=== PATIENT | male | born 1960 | race Caucasian/White ===

== ENCOUNTER 2021-11-19 11:22 | Emergency (ER) | payer OTHER, SELFPAY ==
[2021-11-19 11:24] VITALS: BP 180/111; PULSE 66; RESP 18; TEMP 36.8; O2SAT 97
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
[2021-11-19] MEDS: fentaNYL 100 MCG/2 ML VIAL 75 MCG IVP (11:51)
[2021-11-19] MEDS: Ondansetron 4 MG/2 ML VIAL (11:51)
[2021-11-19 11:55] LABS: Abs Immature Grans 0.07 10^3/uL (0.0-0.06); Absolute Basophil Count 0.04 10^3/uL (0.0-0.2); Absolute Lymphocyte Count 1.06 10^3/uL (1.2-3.4); Absolute Neutrophil Count 12.91 10^3/uL (1.2-6.7); Basophils % 0.3; Eosinophils % 0.7; HCT 44.5 % (40.0-50.0); HGB 14.9 g/dL (13.5-17.5); Immature Grans % 0.5; Lymphocytes % 7.1; MCH 30.9 pg (27.0-33.0); MCHC 33.5 % (32.0-36.0); MCV 92 fL (80-95); MPV 10.3 fL (8.0-11.0); Monocytes % 4.7; Neutrophils % 86.7; Platelet Count 258 10^3/uL (130-400); RBC 4.82 10^6/uL (4.36-5.78); RDW 13.3 % (11.8-14.1); RDW-SD 45.2 fL; WBC 14.89 10^3/uL (4.4-10.8)
[2021-11-19 12:07] LABS: ALT 25 U/L (16-63); AST 24 U/L (15-37); Alkaline Phosphatase 81 U/L (46-116); Anion Gap 7.6 mmol/L (3-11); BUN 20 mg/dL (7-18); Bilirubin, Total 0.5 mg/dL (0.2-1.0); CO2 28.4 mmol/L (21.0-32.0); CREATININE 1.9 mg/dL (0.70-1.30); Calcium 8.9 mg/dL (8.5-10.1); Chloride 103 mmol/L (98-107); Estimated GFR 36.34 (mL/min/1.73m2); Glucose 116 mg/dL (74-106); Lipase 371 U/L (73-393); Potassium 3.2 mmol/L (3.5-5.1); Sodium 139 mmol/L (136-145); Total Protein 7.9 g/dL (6.4-8.2)
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
[2021-11-19] MEDS: Omnipaque 350 MG/ML 100 ML BTL IJ (13:07)
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
== END 2021-11-19 16:24 | disposition home or self-care (01) ==
PROVIDERS: Emergency Provider Physician Assistant
DX: S42.002A Fracture of unspecified part of left clavicle, initial encounter for closed fracture (principal); S92.325A Nondisplaced fracture of second metatarsal bone, left foot, initial encounter for closed fracture; S92.335A Nondisplaced fracture of third metatarsal bone, left foot, initial encounter for closed fracture; S92.345A Nondisplaced fracture of fourth metatarsal bone, left foot, initial encounter for closed fracture; V86.55XA Driver of 3- or 4- wheeled all-terrain vehicle (ATV) injured in nontraffic accident, initial encounter
CPT/HCPCS: 29515; 74177; 80053; 83690; 86850; 86900; 86901; 99285; 70450; 71260; 72125; 73630; 73700; 85025; 99284; J2405; J3010; J3490